=== PATIENT | female | born 1945 | race Caucasian/White ===

== ENCOUNTER 2023-08-18 01:43 | Emergency (ER) | payer OTHER ==
[~2023-08-18 01:43] MED LIST: 'CLONIDINE0.1 MG PO; ALPHA LIPOIC A200 M2 PO; AMLODIPINE BESY10 MG PO; APRESOLINE25 MG PO; COGNIQUIL CAPS1 EACH PO; CYCLOBENZAPRINE10 MG PO; DONEPEZIL HYDRO10 MG PO; FENOFIBRATE160 MG PO; GABAPENTIN100 M2 PO; GLIPIZIDE10 M2 PO; JARDIANCE10 MG PO; KEPPRA500 MG PO; MEMANTINE HCL5 MG PO; NATURE'S BLEND F1 MG PO; OMEPRAZOLE MAGN20 MG PO; OMNICEF300 MG PO; QUETIAPINE FUMA25 M1 PO; ROSUVASTATIN CA20 MG PO; SERTRALINE HYDR50 MG PO; TRAD5TAB1 PO; VAZALORE81 MG PO; ZESTRIL10 MG PO; [UNRECOGNIZED DRUG - CODE] PO
[2023-08-18 01:55] VITALS: BP 113/43
[2023-08-18] MEDS ORDERED: Albuterol Sulf/Ipratropium 3 ML VIAL NEB ONE (02:10)
[2023-08-18] MEDS ORDERED: Albuterol Sulfate 2.5 MG/3 ML VIAL NEB ONE ×2 (02:10→04:15)
[2023-08-18 02:33] LABS: BASO % 0.9 % (0.0-1.0); EOS # 0.3 10*3/uL (0.0-0.4); HEMATOCRIT 35.1 % (37.0-47.0); LYMPH % 20.7 % (27.0-41.0); MEAN CELL VOLUME 93.1 fl (81.0-99.0); MEAN CORPUSCULAR HGB 28.6 pg (27.0-31.0); MEAN CORPUSCULAR HGB CONC 30.8 g/dl (33.0-37.0); MEAN PLATELET VOLUME 10.8 fl (9.6-12.3); MONO # 0.6 10*3/uL (0.1-1.0); MONO % 13.4 % (3.0-9.0); NEUT # 2.7 10*3/uL (2.3-7.9); NEUT % 57.6 % (47.0-73.0); PLATELET COUNT AUTOMATED 221 10*3/uL (130-400); RED BLOOD COUNT 3.77 10*6/uL (4.10-5.10); WHITE BLOOD COUNT 4.7 10*3/uL (4.8-10.8)
[2023-08-20] MEDS ORDERED: TOUJEO SOL300 UNIT/1 SQ (01:01)
[2023-08-20] MEDS ORDERED: ONDANSETRON HYDR4 M1 PO (10:49)
[2023-08-20] MEDS ORDERED: CEPHALEXIN500 M1 PO (10:49)
[2023-08-20] MEDS ORDERED: Ipratropium Brom3 ML INH (10:49)
== END 2023-08-18 07:35 | disposition home or self-care (01) ==
LOC: ED 01:43
PROVIDERS: Emergency Medicine
DX: U07.1 COVID-19 (principal); F03.90 Unspecified dementia, unspecified severity, without behavioral disturbance, psychotic disturbance, mood disturbance, and anxiety; F32.A Depression, unspecified; E78.5 Hyperlipidemia, unspecified; I13.10 Hypertensive heart and chronic kidney disease without heart failure, with stage 1 through stage 4 chronic kidney disease, or unspecified chronic kidney disease; E11.22 Type 2 diabetes mellitus with diabetic chronic kidney disease; N18.9 Chronic kidney disease, unspecified; Z88.8 Allergy status to other drugs, medicaments and biological substances; E83.51 Hypocalcemia; K21.9 Gastro-esophageal reflux disease without esophagitis; Z90.710 Acquired absence of both cervix and uterus; Z98.890 Other specified postprocedural states

== ENCOUNTER 2023-09-15 12:15 | Inpatient (IN) | payer OTHER ==
[2023-09-15] VITALS (12 sets, daily range): BP systolic 77–111; BP diastolic 25–89
[~2023-09-15] VITALS: Ht 154.9 cm; Wt 69.1 kg
[~2023-09-15 12:15] MED LIST changes: +CEPHALEXIN500 M1 PO; +Ipratropium Brom3 ML INH; +ONDANSETRON HYDR4 M1 PO; +TOUJEO SOL300 UNIT/1 SQ
[2023-09-15] MEDS ORDERED: SODIUM CHLORIDE 0.9% 1,000 ML IV ONE (12:25)
[2023-09-15] MEDS ORDERED: fentaNYL CITRATE/PF 50 MCG/ML SYRINGE IV ONE (12:25)
[2023-09-15] MEDS ORDERED: Ondansetron Hydrochloride 4 MG/2 ML VIAL IV ONE (12:25)
[2023-09-15] MEDS ORDERED: IOHEXOL 300 MG/ML 100 ML VIAL IV ONE (12:25)
[2023-09-15 12:53] LABS: BASO # 0.1 10*3/uL (0.0-0.1); BASO % 0.7 % (0.0-1.0); EOS # 0.1 10*3/uL (0.0-0.4); EOS % 0.7 % (1.0-4.0); HEMATOCRIT 37.3 % (37.0-47.0); LYMPH # 0.6 10*3/uL (1.3-4.4); LYMPH % 5.7 % (27.0-41.0); MEAN CELL VOLUME 94.9 fl (81.0-99.0); MEAN CORPUSCULAR HGB 28.8 pg (27.0-31.0); MEAN CORPUSCULAR HGB CONC 30.3 g/dl (33.0-37.0); MONO # 0.8 10*3/uL (0.1-1.0); MONO % 7.9 % (3.0-9.0); NEUT # 8.5 10*3/uL (2.3-7.9); NEUT % 84.5 % (47.0-73.0); PLATELET COUNT AUTOMATED 296 10*3/uL (130-400); RED BLOOD COUNT 3.93 10*6/uL (4.10-5.10); RED CELL DISTRI WIDTH 13.9 % (0-14.5)
[2023-09-15 13:21] LABS: POTASSIUM 3.9 mmol/L (3.4-5.1); TOTAL PROTEIN 5.8 gm/dL (6.0-8.0)
[2023-09-15] MEDS ORDERED: DEXTROSE 50% 25 GM/50 ML SYR IV ONE (15:55)
[2023-09-15] MEDS ORDERED: TEMAZEPAM 15 MG CAP PO PRN (16:15)
[2023-09-15] MEDS ORDERED: ACETAMINOPHEN 325 MG TAB PO PRN (16:15)
[2023-09-15] MEDS ORDERED: Magnesium Hydroxide 30 ML UDC PO PRN (16:15)
[2023-09-15] MEDS ORDERED: Acetaminophen/Hydrocodone 5 MG/325 MG TABLET PO PRN (16:15)
[2023-09-15] MEDS ORDERED: BISACODYL 10 MG SUPP R PRN (16:15)
[2023-09-15] MEDS ORDERED: MORPHINE Sulfate 2 MG/ML SYR IV PRN (16:15)
[2023-09-15] MEDS ORDERED: BISACODYL 5 MG TAB PO PRN (16:15)
[2023-09-15] MEDS ORDERED: ACETAMINOPHEN 650 MG SUPP R PRN (16:15)
[2023-09-15] MEDS ORDERED: Ondansetron Hydrochloride 4 MG/2 ML VIAL IV PRN (16:15)
[2023-09-15] MEDS ORDERED: SODIUM CHLORIDE 0.9% 1,000 ML IV SCH (16:25)
[2023-09-15] MEDS ORDERED: MAGNESIUM SULFATE 50 ML IV ONE (16:50)
[2023-09-15] MEDS ORDERED: DEXTROSE 10 % IN WATER 250 ML IV PRN (17:05)
[2023-09-15] MEDS ORDERED: GABAPENTIN 100 MG CAP PO SCH (22:00)
[2023-09-15] MEDS ORDERED: HEPARIN SODIUM 5,000 UNIT/ML VIAL SC SCH (22:00)
[2023-09-15] MEDS ORDERED: LEVETIRACETAM 500 MG TAB PO SCH (22:00)
[2023-09-15] MEDS ORDERED: INSULIN LISPRO 1 UNIT/0.01 ML SQ SCH (22:00)
[2023-09-16] VITALS: BP 93/43
[2023-09-16] MEDS ORDERED: Pantoprazole Sodium 40 MG TAB PO SCH (06:00)
[2023-09-16 06:49] LABS: BASO # 0.1 10*3/uL (0.0-0.1); BASO % 1.2 % (0.0-1.0); EOS # 0.3 10*3/uL (0.0-0.4); EOS % 3.9 % (1.0-4.0); HEMATOCRIT 37.6 % (37.0-47.0); LYMPH # 0.8 10*3/uL (1.3-4.4); LYMPH % 10.6 % (27.0-41.0); MEAN CELL VOLUME 96.7 fl (81.0-99.0); MEAN CORPUSCULAR HGB CONC 30.1 g/dl (33.0-37.0); MONO # 0.7 10*3/uL (0.1-1.0); MONO % 8.8 % (3.0-9.0); NEUT # 5.8 10*3/uL (2.3-7.9); PLATELET COUNT AUTOMATED 264 10*3/uL (130-400); RED BLOOD COUNT 3.89 10*6/uL (4.10-5.10); RED CELL DISTRI WIDTH 14.2 % (0-14.5); WHITE BLOOD COUNT 7.8 10*3/uL (4.8-10.8)
[2023-09-16 06:55] LABS: ACT PARTIAL THROMBO TIME 30.6 SECONDS (20.0-32.1)
[2023-09-16 07:12] LABS: FREE T4 0.89 ng/dl (0.89-1.76); POTASSIUM 3.9 mmol/L (3.4-5.1); TOTAL PROTEIN 5.7 gm/dL (6.0-8.0)
[2023-09-16 07:30] LABS: BILIRUBIN Negative (Negative); BLOOD Negative (Negative); CLARITY Cloudy (Clear); COLOR Yellow (Yellow); GLUCOSE 3+ (Negative); KETONE Negative (Negative); LEUKO ESTERASE 2+ (Negative); NITRITE Negative (Negative); PH 5.5 (4.5-8.0); SPECIFIC GRAVITY 1.025 (1.001-1.030); UROBILINOGEN 0.2 E.U./dl (0.0-1.0)
[2023-09-16 07:48] LABS: BACTERIA 2+; EPITHELIAL CELLS 21-30; WBC TNTC wbc/hpf (0-5); YEAST 3+
[2023-09-16 07:57] VITALS: BP 110/55
[2023-09-16] MEDS ORDERED: Memantine Hydrochloride 5 MG TAB PO SCH (10:00)
[2023-09-16] MEDS ORDERED: FOLIC ACID 1 MG TAB PO SCH (10:00)
[2023-09-16] MEDS ORDERED: Ceftriaxone Sodium 1 GM in SYRINGE INFUSION 10 ML IV SCH (10:00)
[2023-09-16] MEDS ORDERED: QUETIAPINE FUMARATE 25 MG TAB PO SCH (10:00)
[2023-09-16] MEDS ORDERED: ASPIRIN ENTERIC COATED 81 MG TAB PO SCH (10:00)
[2023-09-16] MEDS ORDERED: Sertraline Hydrochloride 50 MG TAB PO SCH (10:00)
[2023-09-16] MEDS ORDERED: SODIUM CHLORIDE 0.9% 1,000 ML IV ONE (11:15)
[2023-09-16 11:33] VITALS: BP 121/41
[2023-09-16] MEDS ORDERED: predniSONE 10 MG TAB PO SCH (14:10)
[2023-09-16 16:00] VITALS: BP 136/45
[2023-09-16 20:00] VITALS: BP 153/53
[2023-09-17] VITALS: BP 147/55
[2023-09-17 07:12] LABS: POTASSIUM 5.1 mmol/L (3.4-5.1)
[2023-09-17 07:31] VITALS: BP 156/62
[2023-09-17 12:00] VITALS: BP 152/52
[2023-09-17] MEDS ORDERED: ALBUTEROL S5 MG/1 ML INH (13:43)
[2023-09-17] MEDS ORDERED: PREDNISONE10 MG PO (13:43)
== END 2023-09-17 14:06 | disposition home or self-care (01) | DRG 73 ==
LOC: ED 12:15 → 5E 15:44 → EDHOLD 15:44 → 5E 16:52
PROVIDERS: Emergency Medicine; Student in an Organized Health Care Education/Training Program; ADMIT Family Medicine; ATTEND Family Medicine
DX: G90.9 Disorder of the autonomic nervous system, unspecified (principal); N17.0 Acute kidney failure with tubular necrosis; E87.1 Hypo-osmolality and hyponatremia; F03.92 Unspecified dementia, unspecified severity, with psychotic disturbance; F02.84 Dementia in other diseases classified elsewhere, unspecified severity, with anxiety; I95.9 Hypotension, unspecified; K21.9 Gastro-esophageal reflux disease without esophagitis; F32.A Depression, unspecified; N18.30 Chronic kidney disease, stage 3 unspecified; E11.22 Type 2 diabetes mellitus with diabetic chronic kidney disease; I12.9 Hypertensive chronic kidney disease with stage 1 through stage 4 chronic kidney disease, or unspecified chronic kidney disease; E78.2 Mixed hyperlipidemia; E11.65 Type 2 diabetes mellitus with hyperglycemia; E11.42 Type 2 diabetes mellitus with diabetic polyneuropathy; D64.9 Anemia, unspecified; E86.1 Hypovolemia; Z88.8 Allergy status to other drugs, medicaments and biological substances; Z82.49 Family history of ischemic heart disease and other diseases of the circulatory system; Z81.1 Family history of alcohol abuse and dependence; Z80.6 Family history of leukemia; Z98.42 Cataract extraction status, left eye; Z98.41 Cataract extraction status, right eye; Z87.442 Personal history of urinary calculi; Z85.43 Personal history of malignant neoplasm of ovary; Z86.718 Personal history of other venous thrombosis and embolism; Z90.710 Acquired absence of both cervix and uterus

== ENCOUNTER → 2023-09-20 | Outpatient (CLI) | payer OTHER ==
[~2023-09-20] MED LIST changes: +ALBUTEROL S5 MG/1 ML INH; +PREDNISONE10 MG PO
[2023-09-20 10:54] LABS: BASO # 0.1 10*3/uL (0.0-0.1); BASO % 0.8 % (0.0-1.0); EOS # 0.1 10*3/uL (0.0-0.4); EOS % 1.9 % (1.0-4.0); HEMATOCRIT 40.7 % (37.0-47.0); LYMPH # 1.2 10*3/uL (1.3-4.4); LYMPH % 16.7 % (27.0-41.0); MEAN CELL VOLUME 91.9 fl (81.0-99.0); MEAN CORPUSCULAR HGB 29.3 pg (27.0-31.0); MEAN CORPUSCULAR HGB CONC 31.9 g/dl (33.0-37.0); MEAN PLATELET VOLUME 11.5 fl (9.6-12.3); MONO # 0.8 10*3/uL (0.1-1.0); MONO % 11.3 % (3.0-9.0); NEUT % 68.7 % (47.0-73.0); PLATELET COUNT AUTOMATED 294 10*3/uL (130-400); RED BLOOD COUNT 4.43 10*6/uL (4.10-5.10); RED CELL DISTRI WIDTH 13.7 % (0-14.5); WHITE BLOOD COUNT 7.2 10*3/uL (4.8-10.8)
[2023-09-20 11:37] LABS: POTASSIUM 3.7 mmol/L (3.4-5.1); TOTAL PROTEIN 6.5 gm/dL (6.0-8.0)
== END | disposition home or self-care (01) ==
LOC: LAB 10:06
PROVIDERS: ATTEND Internal Medicine
DX: N17.0 Acute kidney failure with tubular necrosis (principal); G90.9 Disorder of the autonomic nervous system, unspecified